=== PATIENT | female | born 1965 | race Caucasian/White ===

== ENCOUNTER → 2018-07-08 | Day surgery (SDC) | payer OTHER ==
[~2018-07-08] MED LIST: ADDERALL 30 MG30 MG PO; AMBIEN10 MG PO; ATENOLOL50 MG PO; CELEBREX100 MG PO; FENTANYL CITRATE/PF 100MCG/2 ML INJ ONE; IMITREX25 MG PO; LEVOTHYROXINE150 MCG PO; LEVOXYL175 MCG PEG; LIDOCAINE HCL 2% LOCAL INJ 5 ML SDV VIAL INJ ONE; MIDAZOLAM HCL 2 MG/2 ML VIAL ONE; NORCO 5-325 TA1 EACH PO; PLAQUENIL200 MG PO; PROPOFOL IV EMULSION 10 MG/ML 50 ML VIAL ONE; Tambocor PO
[2018-07-08 10:44] VITALS: BP 99/65
[2018-07-08 11:00] VITALS: BP 108/80
[2018-07-08 11:15] VITALS: BP 116/78
[2018-07-08 11:30] VITALS: BP 112/77
--- NOTE | 2018-07-08 16:48 | Operative Report ---
DATE OF PROCEDURE: 07/08/2018 SURGEON: Dilip Jeter MD PROCEDURE: Colonoscopy and polypectomy. INDICATION FOR COLONOSCOPY: Colorectal cancer screening. MEDICATIONS: The patient was done under MAC, please see anesthesiologist's note. PROCEDURE IN DETAIL: With the patient in left lateral decubitus position, a flexible fiberoptic Olympus colonoscope was inserted into the rectum with ease and advanced all the way to the cecum. A minute polyp was hot biopsied from the cecum and polypectomy site was hemoclipped. Ascending and transverse colon grossly appeared to be within normal limits. There was some diverticular disease noted primarily in the left colon. One polyp was hot biopsied from the sigmoid and one polyp was hot biopsied from the proximal rectum. The scope was then retroflexed into the distal rectum and small internal hemorrhoids were noted, none of which was actively bleeding. The scope was then straightened out, it was subsequently withdrawn. The patient tolerated procedure well. IMPRESSION: 1. Cecal polyp, hot biopsied, site hemoclipped. 2. Diverticulosis. 3. Sigmoid colon polyp, hot biopsied. 4. Rectal polyp, hot biopsied. 5. Internal hemorrhoids, none actively bleeding. PLAN: Follow up histology. Initiate high-fiber, low-fat diet. Initiate high-fiber supplement. The patient might benefit from a followup colonoscopy in 3 to 5 years. MD RACHAEL Zazueta/NELSYL /[id number] cc: Анна Felipe
--- OUTSIDE RECORDS SUMMARY | 2018-07-10 10:29 | XMS REPORT | Clinical Summary ---
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 Active atenolol (TENORMIN) 25 MG Take 25 mg by 0 tablet mouth daily. Active dextroamphetamine-ampheta Take 30 mg by 0 mine (ADDERALL) 30 mg mouth daily. tablet Active aspirin (ECOTRIN) 81 MG Take 81 mg by 0 enteric coated tablet mouth daily. Active HYDROcodone-acetaminophen Take 1 tablet 0 (NORCO) 10-325 mg per by mouth tablet every 6 (six) hours as needed for moderate pain. Active levothyroxine (SYNTHROID, Take 175 mcg 0 LEVOXYL) 175 mcg tablet by mouth every morning. Active Lactobacillus Take 1 tablet 0 acidoph-L.bulgar by mouth (FLORANEX) 1 million cell daily. tablet Active zolpidem (AMBIEN) 10 mg Take 10 mg by 0 tablet mouth nightly as needed for sleep. Active melatonin 10 mg capsule Take by mouth 0 nightly as needed. 07/25/2017 codeine-guaifenesin Take 5 mL by 118 mL 0 (GUAIFENESIN AC) 10-100 mouth every 4 8 mg/5 mL liquid (four) hours as needed for cough for up to 10 days. 08/14/2017 pantoprazole (PROTONIX) Take 1 tablet 30 tablet 0 40 MG EC tablet (40 mg total) 8 by mouth daily for 30 days. 07/15/2017 Discontinued budesonide (PULMICORT) Take 2 mL 120 mL 0 0.5 mg/2 mL nebulizer (0.5 mg 8 solution total) by nebulization 2 (two) times a day for 30 days. 08/14/2017 albuterol (ACCUNEB) 2.5 Take 3 mL 75 mL 12 mg /3 mL (0.083 %) (2.5 mg 8 nebulizer solution total) by nebulization every 4 (four) hours as needed for shortness of breath for up to 30 days. 08/14/2017 ipratropium (ATROVENT) Take 2.5 mL 75 mL 12 0.02 % nebulizer solution (0.5 mg 8 total) by nebulization every 4 (four) hours as needed for wheezing or shortness of breath for up to 30 days. 08/14/2017 fluticasone-vilanterol Inhale 1 30 each 0 (BREO ELLIPTA) 100-25 inhalations 8 mcg/dose blister with daily for 30 device powder for days. inhalation Active Problems Problem Noted Date Hemoptysis 07/10/2017 Encounters Care Team Description Date Type Specialty Jerry Ceron MD 07/15/2017 Anesthesia Pulmonology Event Анна Morales MD BRONCHOSCOPY, USING ELECTROMAGNETIC NAVIGATION 07/15/2017 Surgery Pulmonology Hermilo Bhatti MD Nguyen, Thuyen T., MD Hemoptysis (Primary Dx); Mycobacterium avium complex; Bronchiectasis with acute exacerbation 07/10/2017 [facility] General Internal Medicine - Encounter 07/15/2017 after 07/09/2017 Social History Date Tobacco Use Types Packs/Day Years Used Never Smoker Smokeless Tobacco: Never Used Alcohol Use Drinks/Week oz/Week Comments No Sex Assigned at Date Recorded Not on file Industry Job Start Date Occupation Not on file Not on file Not on file Travel End Travel History Travel Start No recent travel history available. Last Filed Vital Signs Time Taken Vital Sign Reading 07/15/2017 10:41 AM CDT Blood Pressure 125/66 07/15/2017 10:41 AM CDT Pulse 81 07/15/2017 10:41 AM CDT Temperature 36 C (96.8 F) 07/15/2017 10:41 AM CDT Respiratory Rate 18 07/15/2017 10:41 AM CDT Oxygen Saturation 98% - Inhaled Oxygen - Concentration 07/10/2017 1:30 PM CDT Weight 51.7 kg (114 lb 1 oz) - Height - - Body Mass Index - Plan of Treatment Health Maintenance Due Date Last Done Comments CERVICAL CANCER SCREENING 1985 BREAST CANCER SCREENING 2014 COLON CANCER SCREENING 2014 SHINGLES VACCINES (#1) 2014 INFLUENZA VACCINE 09/28/2018 Implants Device Identifier Shelf Expiration Date Model / Serial / Lot Implanted Type Area Manufactur er Breast Implants Procedures Comments Procedure Name Priority Date/Time Associated Diagnosis SURGICAL PATHOLOGY Routine 07/15/2017 REQUEST 11:10 AM CDT CYTOLOGY Routine 07/15/2017 (NON-GYNECOLOGICAL) 10:54 AM CDT REQUEST CYTOLOGY Routine 07/15/2017 (NON-GYNECOLOGICAL) 10:54 AM CDT REQUEST BODY FLUID CONSULT Routine 07/15/2017 10:32 AM CDT BAL T4T8 Routine 07/15/2017 10:32 AM CDT BAL CELL COUNT AND Routine 07/15/2017 DIFFERENTIAL 10:32 AM CDT XR CHEST 1 VW PORTABLE Routine 07/15/2017 9:40 AM CDT GRAM STAIN Routine 07/15/2017 9:36 AM CDT RESPIRATORY CULTURE Routine 07/15/2017 9:36 AM CDT FUNGUS SMEAR Routine 07/15/2017 9:36 AM CDT AFB STAIN Routine 07/15/2017 9:36 AM CDT AFB CULTURE Routine 07/15/2017 9:36 AM CDT AFB STAIN Routine 07/15/2017 9:36 AM CDT FUNGUS SMEAR Routine 07/15/2017 9:36 AM CDT FUNGUS CULTURE Routine 07/15/2017 9:36 AM CDT RESPIRATORY CULTURE Routine 07/15/2017 9:36 AM CDT RESPIRATORY PATHOGEN Routine 07/15/2017 PANEL 9:36 AM CDT LEGIONELLA CULTURE Routine 07/15/2017 9:36 AM CDT NOCARDIA CULTURE Routine 07/15/2017 9:36 AM CDT FUNGUS CULTURE Routine 07/15/2017 9:36 AM CDT AFB CULTURE Routine 07/15/2017 9:36 AM CDT BRONCHOSCOPY, USING 07/15/2017 Lung nodule ELECTROMAGNETIC 8:00 AM CDT NAVIGATION, WITH ENDOBRONCHIAL ULTRASOUND HC COMPLETE BLD COUNT Routine 07/15/2017 W/AUTO DIFF 5:00 AM CDT PROTHROMBIN TIME WITH INR Routine 07/15/2017 5:00 AM CDT ZZESTIMATED GFR Routine 07/15/2017 4:00 AM CDT BASIC METABOLIC PANEL Routine 07/15/2017 4:00 AM CDT ECHOCARDIOGRAM 2D Routine 07/14/2017 COMPLETE W MMODE SPECTRAL 3:00 PM CDT COLOR DOPPLER (77535) TB IN-TUBE QUANTIFERON Routine 07/14/2017 10:22 AM CDT ZZESTIMATED GFR Routine 07/14/2017 7:10 AM CDT BASIC METABOLIC PANEL Routine 07/14/2017 7:10 AM CDT HC COMPLETE BLD COUNT Routine 07/14/2017 W/AUTO DIFF 5:00 AM CDT ECG 12-LEAD Routine 07/13/2017 2:36 PM CDT HC COMPLETE BLD COUNT Routine 07/12/2017 W/AUTO DIFF 5:00 AM CDT ZZESTIMATED GFR Routine 07/12/2017 4:00 AM CDT MAGNESIUM LEVEL Routine 07/12/2017 4:00 AM CDT BASIC METABOLIC PANEL Routine 07/12/2017 4:[address] CHEST W CONTRAST Routine 07/11/2017 5:17 PM CDT B NATRIURETIC PEPTIDE Routine 07/11/2017 5:30 AM CDT PROTHROMBIN TIME WITH INR Routine 07/11/2017 5:30 AM CDT HC COMPLETE BLD COUNT Routine 07/11/2017 W/AUTO DIFF 5:30 AM CDT ZZESTIMATED GFR Routine 07/11/2017 4:00 AM CDT THYROID STIMULATING Routine 07/11/2017 HORMONE 4:00 AM CDT PHOSPHORUS LEVEL Routine 07/11/2017 4:00 AM CDT MAGNESIUM LEVEL Routine 07/11/2017 4:00 AM CDT LIPID PANEL Routine 07/11/2017 4:00 AM CDT COMPREHENSIVE METABOLIC Routine 07/11/2017 PANEL 4:00 AM CDT URINALYSIS SCREEN AND Routine 07/10/2017 MICROSCOPY, WITH REFLEX 11:12 PM CDT TO CULTURE URINE CULTURE Routine 07/10/2017 11:00 PM CDT TROPONIN Timed 07/10/2017 2:40 PM CDT BLOOD CULTURE, AEROBIC & Routine 07/10/2017 ANAEROBIC 2:00 PM CDT BLOOD CULTURE, AEROBIC & Routine 07/10/2017 ANAEROBIC 2:00 PM CDT RESPIRATORY PATHOGEN Routine 07/10/2017 PANEL 2:00 PM CDT ZZESTIMATED GFR STAT 07/10/2017 6:55 AM CDT TYPE AND SCREEN Routine 07/10/2017 6:55 AM CDT PARTIAL THROMBOPLASTIN STAT 07/10/2017 TIME (PTT) 6:55 AM CDT PROTHROMBIN TIME WITH INR STAT 07/10/2017 6:55 AM CDT HC COMPLETE BLD COUNT STAT 07/10/2017 W/AUTO DIFF 6:55 AM CDT COMPREHENSIVE METABOLIC STAT 07/10/2017 PANEL 6:55 AM CDT XR CHEST 2 VW STAT 07/10/2017 6:41 AM CDT after 07/09/2017 Results * Surgical pathology request (07/15/2017 11:10 AM CDT) [facility] PATHOLOGY AND GENOMIC MEDICINE Surgical pathology report See link below for PDF Lab [facility] Report PATHOLOGY AND GENOMIC MEDICINE Result status This is Final Report to [facility] [id number] PATHOLOGY AND GENOMIC MEDICINE Performing Organization Address City/[facility] Phone Number [facility] [address] [place] [address] PATHOLOGY AND GENOMIC MEDICINE * Cytology (non-gynecological) request (07/15/2017 10:54 AM CDT) Only the most recent of 2 results within the time period is included. [facility] PATHOLOGY AND GENOMIC MEDICINE Cytology See link below for PDF Lab [facility] OF (non-gynecological) Report PATHOLOGY AND report GENOMIC MEDICINE Result status This is Supplemental Report to [facility] OF [id number] PATHOLOGY AND GENOMIC MEDICINE Performing Organization Address City/[facility]/Zipcode Phone Number [facility] [address] [place] [address] PATHOLOGY AND GENOMIC MEDICINE * Body fluid consult (07/15/2017 10:32 AM CDT) Body fluid consult Done [facility] Comment: PATHOLOGY AND Negative for GENOMIC MEDICINE malignancy.Please see corresponding cytology NMP and NMP for morphological diagnosis.Reviewed by Aubrie Mcgrath M.D. Specimen Fluid Performing Organization Address [facility]/Zipcode Phone Number [facility] [address] [address] PATHOLOGY AND GENOMIC MEDICINE * BAL T4T8 (07/15/2017 10:32 AM CDT) CD3 BAL FC 88.9 % [facility] PATHOLOGY AND GENOMIC MEDICINE CD4 BAL FC 65.3 % [facility] PATHOLOGY AND GENOMIC MEDICINE CD8 BAL FC 18.6 % [facility] PATHOLOGY AND GENOMIC MEDICINE CD4 BAL/CD8 BAL ratio 3.51 [facility] OF PATHOLOGY AND GENOMIC MEDICINE BAL T4T8 See link below for PDF Lab [facility] OF ReportComment: Case Number: PATHOLOGY AND [id number] GENOMIC MEDICINE Specimen RUL BAL Performing Organization Address [facility] Cent[facility]ode Phone Number [facility] [address] [address] PATHOLOGY AND GENOMIC MEDICINE * BAL cell count and differential (07/15/2017 10:32 AM CDT) BAL specimen source RUL BAL [facility] OF PATHOLOGY AND GENOMIC MEDICINE BAL cell count 0.080 m/mL [facility] Comment: PATHOLOGY AND Normal ranges: Nonsmokers: GENOMIC MEDICINE 0.007 - 0.363 Smokers: 0 - 1.31 Ciliated Cells Seen. 07/15/201712:23 Many [facility] REVISED REPORT, Previously reported as: Ciliated Cells Seen. 07/15/2017 12:23(Reported 07/15/2017 12:23) BAL PAMS 15 % [facility] Comment: PATHOLOGY AND Normal ranges: Nonsmokers: 65 GENOMIC MEDICINE - 100 Smokers: 81 - 100 BAL PMNS 79 % [facility] Comment: PATHOLOGY AND Normal ranges: Nonsmokers: 0 - GENOMIC MEDICINE 3 Smokers: 0 - 2 BAL lymphs 6 % [facility] Comment: PATHOLOGY AND Normal ranges: Nonsmokers: 0 - GENOMIC MEDICINE 10 Smokers: 0 - 5 Specimen Fluid Performing Organization Address [facility] Cent[facility]ode Phone Number [address] [address] PATHOLOGY AND GENOMIC MEDICINE * XR Chest 1 Vw Portable (07/15/2017 9:40 AM CDT) Narrative Performed At EXAMINATION:XR CHEST 1 VW PORTABLE RADIANT CLINICAL HISTORY:Post lung biopsy COMPARISON:July 10, 2017 IMPRESSION: There is no pneumothorax. Irregular opacity reidentified peripherally in the right lung as well as in the lingular area. There is no pleural effusion. Heart is normal in size. [facility]-[id number] Procedure Note Hm Interface, Radiology Results Incoming - 07/15/2017 2:49 PM CDT EXAMINATION: XR CHEST 1 VW PORTABLE CLINICAL HISTORY: Post lung biopsy COMPARISON: July 10, 2017 IMPRESSION: There is no pneumothorax. Irregular opacity reidentified peripherally in the right lung as well as in the lingular area. There is no pleural effusion. Heart is normal in size. [facility]-[id number] Performing Organization Address [facility] [place] [address] * Respiratory culture (07/15/2017 9:36 AM CDT) Only the most recent of 2 results within the time period is included. Respiratory culture No growth after 2 days. [facility] OF isolate Comment: PATHOLOGY AND Specimen Information GENOMIC MEDICINE Specimen Source: Bronchial alveolar lavage Specimen Site: RUL (right upper lobe) Specimen Bronchial alveolar lavage - RUL (right upper lobe) Performing Organization Address [facility] Phone Number [facility] [address] [place] [address] PATHOLOGY AND GENOMIC MEDICINE * Fungus smear (07/15/2017 9:36 AM CDT) Only the most recent of 2 results within the time period is included. Fungus smear No fungi observed. [facility] Comment: PATHOLOGY AND Specimen Information GENOMIC MEDICINE Specimen Source: Bronchial alveolar lavage Specimen Site: RUL (right upper lobe) Specimen Bronchial alveolar lavage - RUL (right upper lobe) Performing Organization Address [facility] Phone Number [facility] [address] [place] [address] PATHOLOGY AND GENOMIC MEDICINE * Respiratory pathogen panel (07/15/2017 9:36 AM CDT) Only the most recent of 2 results within the time period is included. Respiratory pathogen Negative for all pathogens [facility] panel tested: PATHOLOGY AND Negative for Adenovirus GENOMIC MEDICINE Negative for Coronavirus HKU1 Negative for Coronavirus NL63 Negative for Coronavirus 229E Negative for Coronavirus OC43 Negative for Human Metapneumovirus Negative for Rhinovirus/Enterovirus Negative for Influenza A Negative for Influenza A/H1 Negative for Influenza A/H3 Negative for Influenza A/H1-2009 Negative for Influenza B Negative for Parainfluenza Virus 1 Negative for Parainfluenza Virus 2 Negative for Parainfluenza Virus 3 Negative for Parainfluenza Virus 4 Negative for Respiratory Syncytial Virus Negative for Bordetella pertussis Negative for Chlamydophila pneumoniae Negative for Mycoplasma pneumoniae This real-time PCR assay detects the presence of nucleic acids (RNA or DNA) for the respiratory pathogens listed. A result of "Not-detected" does not exclude the possibility of the presence of one or more pathogens at concentrations less than the detectable limits of the assay. Comment: Specimen Information Specimen Source: Bronchial alveolar lavage Specimen Site: RUL (right upper lobe) Specimen Bronchial alveolar lavage - RUL (right upper lobe) Performing Organization Address City/[facility]ode Phone Number [facility] [address] [place] [address] PATHOLOGY AND GENOMIC MEDICINE * AFB culture (07/15/2017 9:36 AM CDT) Only the most recent of 2 results within the time period is included. AFB culture isolate No growth after 6 weeks of [facility] incubation. PATHOLOGY AND Comment: GENOMIC MEDICINE Specimen Information Specimen Source: Bronchial Brushing Specimen Site: RUL (right upper lobe) Specimen Bronchial brushing - RUL (right upper lobe) Performing Organization Address [facility] Phone Number [facility] [address] [place] [address] PATHOLOGY AND GENOMIC MEDICINE * Nocardia culture (07/15/2017 9:36 AM CDT) Nocardia culture isolate No Nocardia isolated after 7 [facility] days. PATHOLOGY AND Comment: GENOMIC MEDICINE Specimen Information Specimen Source: Bronchial alveolar lavage Specimen Site: RUL (right upper lobe) Specimen Bronchial alveolar lavage - RUL (right upper lobe) Performing Organization Address City/[facility]ode Phone Number [facility] [address] [place] [phone] PATHOLOGY AND GENOMIC MEDICINE * Legionella culture (07/15/2017 9:36 AM CDT) Legionella culture No Legionella isolated. [facility] OF isolate Comment: PATHOLOGY AND Specimen Information GENOMIC MEDICINE Specimen Source: Bronchial alveolar lavage Specimen Site: RUL (right upper lobe) Specimen Bronchial alveolar lavage - RUL (right upper lobe) Performing Organization Address City/[facility] Phone Number [facility] [address] [address] PATHOLOGY AND GENOMIC MEDICINE * Gram stain (07/15/2017 9:36 AM CDT) Gram stain isolate Occasional WBC's [facility] No organisms seen PATHOLOGY AND Comment: GENOMIC MEDICINE Specimen Information Specimen Source: Bronchial alveolar lavage Specimen Site: RUL (right upper lobe) Specimen Bronchial alveolar lavage - RUL (right upper lobe) Performing Organization Address City/[facility] Phone Number [facility] [address] [place] [address] PATHOLOGY AND GENOMIC MEDICINE * AFB stain (07/15/2017 9:36 AM CDT) Only the most recent of 2 results within the time period is included. AFB stain No acid fast bacilli (AFB) [facility] OF seen. PATHOLOGY AND Comment: GENOMIC MEDICINE Specimen Information Specimen Source: Bronchial alveolar lavage Specimen Site: RUL (right upper lobe) Specimen Bronchial alveolar lavage - RUL (right upper lobe) Performing Organization Address City/[facility] Phone Number [facility] [address] [place] [address] PATHOLOGY AND GENOMIC MEDICINE * Fungus culture (07/15/2017 9:36 AM CDT) Only the most recent of 2 results within the time period is included. Fungus culture isolate No growth after 4 weeks of [facility] OF incubation. PATHOLOGY AND Comment: GENOMIC MEDICINE Specimen Information Specimen Source: Bronchial Brushing Specimen Site: RUL (right upper lobe) Specimen Bronchial brushing - RUL (right upper lobe) Performing Organization Address [facility] Phone Number [facility] [address] [place] [address] PATHOLOGY AND GENOMIC MEDICINE * Prothrombin time with INR (07/15/2017 5:00 AM CDT) Only the most recent of 3 results within the time period is included. Prothrombin time 13.8 12.0 - 15.0 sec [facility] OF PATHOLOGY AND GENOMIC MEDICINE INR 1.0 [facility] Comment: PATHOLOGY AND The International Normalized GENOMIC MEDICINE Ratio (INR) is a therapeutic monitoring tool for patients who are stable on oral anticoagulant therapy. An INR of 2.0-3.0 is suggested for deep vein thrombosis/pulmonary embolism. Specimen Blood Performing Organization Address City/[facility]ode Phone Number [facility] [address] [place] [address] PATHOLOGY AND GENOMIC MEDICINE * CBC with platelet and differential (07/15/2017 5:00 AM CDT) Only the most recent of 5 results within the time period is included. WBC 4.67 4.50 - 11.00 k/uL [facility] OF PATHOLOGY AND GENOMIC MEDICINE RBC 4.02 (L) 4.20 - 5.50 m/uL [facility] OF PATHOLOGY AND GENOMIC MEDICINE HGB 11.6 (L) 12.0 - 16.0 g/dL [facility] OF PATHOLOGY AND GENOMIC MEDICINE HCT 36.3 (L) 37.0 - 47.0 % [facility] OF PATHOLOGY AND GENOMIC MEDICINE MCV 90.3 82.0 - 100.0 fL [facility] OF PATHOLOGY AND GENOMIC MEDICINE MCH 28.9 27.0 - 34.0 pg [facility] OF PATHOLOGY AND GENOMIC MEDICINE MCHC 32.0 31.0 - 37.0 g/dL [facility] OF PATHOLOGY AND GENOMIC MEDICINE RDW - SD 44.0 37.0 - 55.0 fL [facility] OF PATHOLOGY AND GENOMIC MEDICINE MPV 10.5 8.8 - 13.2 fL [facility] OF PATHOLOGY AND GENOMIC MEDICINE Platelet count 256 150 - 400 k/uL [facility] OF PATHOLOGY AND GENOMIC MEDICINE Nucleated RBC 0.00 /100 WBC [facility] OF PATHOLOGY AND GENOMIC MEDICINE Neutrophils 44.8 39.0 - 69.0 % [facility] OF PATHOLOGY AND GENOMIC MEDICINE Lymphocytes 37.0 25.0 - 45.0 % [facility] OF PATHOLOGY AND GENOMIC MEDICINE Monocytes 15.4 (H) 0.0 - 10.0 % [facility] OF PATHOLOGY AND GENOMIC MEDICINE Eosinophils 1.7 0.0 - 5.0 % [facility] OF PATHOLOGY AND GENOMIC MEDICINE Basophils 0.9 0.0 - 1.0 % [facility] OF PATHOLOGY AND GENOMIC MEDICINE Immature granulocytes 0.2Comment: "Immature 0.0 - 1.0 % [facility] granulocytes" (promyelocytes, PATHOLOGY AND myelocytes, metamyelocytes) [facility] MEDICINE Specimen Blood Performing Organization Address City/State/Zipcode Phone Number [facility] OF [address] [place] [address] PATHOLOGY AND GENOMIC MEDICINE * Estimated GFR (07/15/2017 4:00 AM CDT) Only the most recent of 5 results within the time period is included. GFR Non Af Amer 75 mL/min/1.73 m2 [facility] OF PATHOLOGY AND GENOMIC MEDICINE GFR Af Amer >90 mL/min/1.73 m2 [facility] Comment: PATHOLOGY AND Chronic kidney disease: <60 GENOMIC MEDICINE mL/min/1.73m2 Kidney failure: <15 mL/min/1.73m2 The estimated GFR is calculated from the IDMS-traceable Modification of Diet in Renal Disease Equation. The accuracy of the calculation is poor when the creatinine is normal. Calculated values >90 mL/min/1.73m2 are not reported. This equation has not been validated in children (<18 years), women, the elderly (>70 years), or ethnic groups other than Caucasians and Americans. Specimen Plasma specimen Performing Organization Address City/[facility] [place] [address] PATHOLOGY [facility] * Basic metabolic panel (07/15/2017 4:00 AM CDT) Only the most recent of 3 results within the time period is included. Sodium 138 135 - 148 mEq/L [facility] OF PATHOLOGY AND GENOMIC MEDICINE Potassium 4.3 3.5 - 5.0 mEq/L [facility] OF PATHOLOGY AND GENOMIC MEDICINE Chloride 101 98 - 112 mEq/L [facility] OF PATHOLOGY AND GENOMIC MEDICINE CO2 23 (L) 24 - 31 mEq/L [facility] OF PATHOLOGY AND GENOMIC MEDICINE Anion gap 14@ANIO 7 - 15 mEq/L [facility] OF PATHOLOGY AND GENOMIC MEDICINE BUN 12 6 - 20 mg/dL [facility] OF PATHOLOGY AND GENOMIC MEDICINE Creatinine 0.8 0.5 - 0.9 mg/dL [facility] OF PATHOLOGY AND GENOMIC MEDICINE Glucose 78 65 - 99 mg/dL [facility] OF PATHOLOGY AND GENOMIC MEDICINE Calcium 9.3 8.3 - 10.2 mg/dL [facility] OF PATHOLOGY AND GENOMIC MEDICINE Specimen Plasma specimen Performing Organization Address City/[facility] Phone Number [facility] [place] [place] [address] PATHOLOGY [facility] * Echocardiogram complete w contrast and 3D if needed (07/14/2017 3:00 PM CDT) [facility]arrative [facility] [address] [place] [address] Pat.Name:KAREN COBOS.ID:[id number] .Date: 07/14/2017 Refer.MD:GERTRUDIS TOSCANO MD Exam Time: 1:55:00 PMStudy Type:Routine Echo Height:65inWeight:114lb BSA: 1.56 m2 DOBAge:1965,51Y Sex: FEMALEBP:136/77 HR:84 bpmSonogrphr: SULY Marie Pat. Stat.:Inpatient Room:[facility] Study Status:Final Echo Event ID:[id number] Order ID:[id number] Reason for Study:Perioperative Eval - Routine prioperative eval of ventricular function with no symptoms or signs of cardiovascular disease; planned for general anesthesia tomorrow, 07/14 Procedures:2D Echo, Colorflow Doppler, 3D Echo Race:C SUMMARY: Overall wall motion is normal. Estimated EF is 65-69% RV systolic function is normal. Normal diastolic function. FINDINGS: LV: LV size is normal. LV EF is normal. Overall wall motion is normal.Estimated EF is 65-69% RV: RV size is normal. RV systolic function is normal. LA: LA size is normal. RA: RA size is normal. AO: Aortic root diameter is normal. KATHLEEN: No pericardial effusion. AV: No structural AV abnormalities noted. MV: No structural MV abnormalities noted. PV: No structural PV abnormalities noted. TV: No structural TV abnormalities noted. Nguyễn: Normal diastolic function. Other:Insufficient TR jet to estimate PA systolic pressure. MEASUREMENTS: 2D Parasternal Long [place] LVOT 1.6 cmLA Ds2.9 cm LVIDd4.2 cmIndex2.7 cm/m Ao An1.8 cm LVIDs2.1 cmAo Rtd 2.3 cm Index1.4 cm/m LV%fs 49.8 % LV Mass 87.6 g(87-129) IVSd 0.7 cmLVM Index 56.1 g/m2 LVPWd0.8 cmRWT0.4 LA Sng Plane LA Area 12.8 cm2(8.8-23.4) LA Vol36.5 ml Index23.4 ml/m LA LngAx 3.7 cm RA Sng Plane RA Area9.6 cm2(8.3-19.5) RA Vol23.7 ml Index15.2 ml/m RA LngAx 3.3 cm Signed 07/14/2017 03:48 PM Joesph Smith M.D. Procedure Note Interface, Radiology Results In - 07/14/2017 3:48 PM CDT Echocardiography Report [id number] [place] [address] Pat.Name: KAREN COBOS Pat.ID: [id number] .Date: 07/14/2017 Refer.MD: GERTRUDIS TOSCANO MD Exam Time: 1:55:00 PM Study Type:Routine Echo Height: 65in Weight: 114lb BSA: 1.56 m2 Age: 10 1965,51Y Sex: FEMALE BP: 136/77 HR: 84 bpm Sonogrphr: SULY Marie Pat. Stat.:Inpatient Room: [facility] Study Status:Final Echo Event ID:[id number] Order ID: [id number] Reason for Study:Perioperative Eval - Routine prioperative eval of ventricular function with no symptoms or signs of cardiovascular disease; planned for general anesthesia tomorrow, 07/14 Procedures:2D Echo, Colorflow Doppler, 3D Echo Race: C SUMMARY: Overall wall motion is normal. Estimated EF is 65-69% RV systolic function is normal. Normal diastolic function. FINDINGS: LV: LV size is normal. LV EF is normal. Overall wall motion is normal. Estimated EF is 65-69% RV: RV size is normal. RV systolic function is normal. LA: LA size is normal. RA: RA size is normal. AO: Aortic root diameter is normal. KATHLEEN: No pericardial effusion. AV: No structural AV abnormalities noted. MV: No structural MV abnormalities noted. PV: No structural PV abnormalities noted. TV: No structural TV abnormalities noted. Nguyễn: Normal diastolic function. Other: Insufficient TR jet to estimate PA systolic pressure. MEASUREMENTS: 2D Parasternal Long [place] LVOT 1.6 cm LA Ds 2.9 cm LVIDd 4.2 cm Index 2.7 cm/m Ao An 1.8 cm LVIDs 2.1 cm Ao Rtd 2.3 cm Index 1.4 cm/m LV%fs 49.8 % LV Mass 87.6 g (87-129) IVSd 0.7 cm LVM Index 56.1 g/m2 LVPWd 0.8 cm RWT 0.4 LA Sng Plane LA Area 12.8 cm2 (8.8-23.4) LA Vol 36.5 ml Index 23.4 ml/m LA LngAx 3.7 cm RA Sng Plane RA Area 9.6 cm2 (8.3-19.5) RA Vol 23.7 ml Index 15.2 ml/m RA LngAx 3.3 cm Signed 07/14/2017 03:48 PM Joesph Smith M.D. Performing Organization Address City/State/Zipcode Phone Number [facility] [address] [place] [address] * TB IN-TUBE Quantiferon (07/14/2017 10:22 AM CDT) TB IN-TUBE Quantiferon SEE NOTE [facility] OF Comment: PATHOLOGY AND Quantiferon TB Gold In-Tube GENOMIC MEDICINE Test Results: QUANTITATIVE NIL: 0.03 QUANTITATIVE ANTIGEN: 0.04 QUANTITATIVE MITOGEN: 4.13 QUANTITATIVE ANTIGEN-NIL: 0.01 QUANTITATIVE MITOGEN-NIL: 4.1 QUALITATIVE INTERPRETATION:NEGATIVE (Reference: negative) INTERFERON GAMMA CONCENTRATIONS EXPRESSED IN IU/ML. RESULT INTERPRETATION RESULTS ARE NEGATIVE UNDER THE FOLLOWING CONDITIONS: (Antigen - Nil) < 0.35 and (Mitogen - Nil) >=0.5 RESULTS ARE POSITIVE UNDER THE FOLLOWING CONDITIONS: (ANTIGEN-NIL) > 0.35 AND (ANTIGEN-NIL) >=25% OF NIL RESULTS ARE INDETERMINATE IF ANY OF THE FOLLOWING 3 CONDITIONS ARE MET: 1. (ANTIGEN-NIL) < 0.35 AND (MITOGEN-NIL) < 0.5 2. (ANTIGEN-NIL) >=0.35 AND (ANTIGEN-NIL) < 25% OF NIL AND (MITOGEN-NIL) < 0.5 3. NIL > 8.0 LIMITATIONS: Quantiferon TB In-Tube is an indirect test for M. tuberculosis infection (including disease).Diagnosing or excluding tuberculosis disease, and assessing the probability of LTBI, require a combination of epidemiological, historical, medical and diagnostic findings that should be taken into account when interpreting Quantiferon TB Gold results.See general guidance on the diagnosis and treatment of TB disease and LTBI: http://www.cdc.gov.nchstp/tb/ M. tuberculosis infection cannot be excluded especially when: 1. any illness is consistent with TB disease. 2. likelihood of progression to disease (e.g. due to immunosuppression) is increased. NOTE:The cut-point for the Quantiferon TB In-tube test is 0.35 IU/mL above the NIL control. Warning: The performance of the Quantiferon TB test has not been evaluated with specimens from the following group of individuals: 1. Individuals who have impaired or altered immune function (HIV infection or immunosuppressive treatment). 2. Individuals younger than age 17 years. 3. women. Test performed by: [facility] Molecular Tuberculosis Lab [facility] [place], [place] lab: [phone] fax: [phone] Specimen Blood Performing Organization Address City/[facility]/Zipcode Phone Number [facility] OF [address] [place] [address] PATHOLOGY AND GENOMIC MEDICINE * ECG 12 lead (07/13/2017 2:36 PM CDT) Ventricular rate 78 H MUSE Atrial rate 78 [facility] HI interval 170 [facility] QRSD interval 84 [facility] QT interval 382 [facility] QTC interval 435 [facility] M[facility] P axis 1 66 [facility] QRS axis 1 28 [facility] T wave axis 69 [facility] EKG impression Normal sinus rhythm-Normal [facility] ECG-No previous ECGs available- Performing Organization Address City/[facility] Phone Number [facility] [address] [place] [address] * Magnesium level (07/12/2017 4:00 AM CDT) Only the most recent of 2 results within the time period is included. Magnesium 1.9 1.6 - 2.6 mg/dL [facility] OF PATHOLOGY AND GENOMIC MEDICINE Specimen Plasma specimen Performing Organization Address City/[facility] Phone Number [facility] OF [address] [place] [address] PATHOLOGY AND GENOMIC MEDICINE * CT Chest W Contrast (07/11/2017 5:17 PM CDT) Narrative Performed At EXAMINATION: RADIANT CT CHEST W CONTRAST CLINICAL HISTORY: BRONCHIECTASIS WACUTE EXACERBATION TECHNIQUE: Multiple axial images of the chest were obtained following intravenous administration of iodinated contrast. Sagittal and coronal computerized reformatted images were also obtained. CT scans are performed using radiation dose reduction techniques. Technical factors are evaluated and adjusted to ensure appropriate moderation of exposure. Automated dose management technology is applied to adjust radiation exposure while achieving a diagnostic quality image COMPARISON: FINDINGS: Scans to the right lung aguilar demonstrate scattered areas of bronchiectasis with small nodular densities some of which have central lucency suggesting early cavitation.Most prominent areas are in the posterior right upper lobe and in the upper right middle lobe near the minor fissure where there is a spiculated mass density 1.7 cm in diameter.Multiple smaller nodular densities are seen scattered throughout the right middle lobe and right upper lobe. In the posterior right lower lobe there is a 13 mm nodular density with large central clear area compatible with early cavitation. In the lingula there is an area of density with the transversing bronchiectatic segments and some nodularity.In the left lower lobe there is a more focal area of density measuring approximately 8 mm in diameter.Findings are compatible with multifocal bronchial infection or inflammation and atypical organisms should be considered.Neoplasm cannot be excluded for any of these lesions. There is no significant mediastinal mass are adenopathy.Some minimally prominent lymph nodes are noted in the right hilum but not the left.Thoracic aorta and pulmonary artery are of normal caliber. There are bilateral breast prosthesis. IMPRESSION: Extensive bilateral changes of bronchiectasis with nodularity and some cavitation. [facility]-[id number] Procedure Note [facility], Radiology Results Incoming - 07/11/2017 5:32 PM CDT EXAMINATION: CT CHEST W CONTRAST CLINICAL HISTORY: BRONCHIECTASIS W ACUTE EXACERBATION TECHNIQUE: Multiple axial images of the chest were obtained following intravenous administration of iodinated contrast. Sagittal and coronal computerized reformatted images were also obtained. CT scans are performed using radiation dose reduction techniques. Technical factors are evaluated and adjusted to ensure appropriate moderation of exposure. Automated dose management technology is applied to adjust radiation exposure while achieving a diagnostic quality image COMPARISON: FINDINGS: Scans to the right lung aguilar demonstrate scattered areas of bronchiectasis with small nodular densities some of which have central lucency suggesting early cavitation. Most prominent areas are in the posterior right upper lobe and in the upper right middle lobe near the minor fissure where there is a spiculated mass density 1.7 cm in diameter. Multiple smaller nodular densities are seen scattered throughout the right middle lobe and right upper lobe. In the posterior right lower lobe there is a 13 mm nodular density with large central clear area compatible with early cavitation. In the lingula there is an area of density with the transversing bronchiectatic segments and some nodularity. In the left lower lobe there is a more focal area of density measuring approximately 8 mm in diameter. Findings are compatible with multifocal bronchial infection or inflammation and atypical organisms should be considered. Neoplasm cannot be excluded for any of these lesions. There is no significant mediastinal mass are adenopathy. Some minimally prominent lymph nodes are noted in the right hilum but not the left. Thoracic aorta and pulmonary artery are of normal caliber. There are bilateral breast prosthesis. IMPRESSION: Extensive bilateral changes of bronchiectasis with nodularity and some cavitation. [facility]-[id number] Performing Organization Address City/[facility]/[place] [address] * B natriuretic peptide (07/11/2017 5:30 AM CDT) BNP 23 0 - 100 pg/mL [facility] OF PATHOLOGY AND GENOMIC MEDICINE Specimen Blood Performing Organization Address [facility] Cent[facility]ode Phone Number [facility] [place] [place] [address] PATHOLOGY AND [facility] * Thyroid stimulating hormone (07/11/2017 4:00 AM CDT) TSH 0.13 (L) 0.27 - 4.20 uIU/mL [facility] OF PATHOLOGY AND GENOMIC MEDICINE Specimen Plasma specimen Performing Organization Address [facility] [place] [address] PATHOLOGY AND [facility] * Phosphorus level (07/11/2017 4:00 AM CDT) Phosphorus 3.5 2.4 - 4.5 mg/dL [facility] OF PATHOLOGY AND GENOMIC MEDICINE Specimen Plasma specimen Performing Organization Address [facility] [place] [address] PATHOLOGY AND GENOMIC MEDICINE * Lipid panel (07/11/2017 4:00 AM CDT) Cholesterol 161 <200 mg/dL [facility] OF PATHOLOGY AND GENOMIC MEDICINE Triglycerides 77 <150 mg/dL [facility] OF PATHOLOGY AND GENOMIC MEDICINE HDL cholesterol 60 >40 mg/dL [facility] OF PATHOLOGY AND GENOMIC MEDICINE LDL cholesterol 98Comment: Result obtained by <100 mg/dL [facility] OF direct LDL measurement PATHOLOGY AND GENOMIC MEDICINE Lipid panel SeeBelow [facility] OF interpretation Comment: PATHOLOGY AND Total Cholesterol GENOMIC MEDICINE (mg/dL) <200 Desirable 200-239Borderline -high >=240High Triglycerides (mg/dL) <150 Normal 150-199Borderline -high 200-499High >=500Very high HDL Cholesterol (mg/dL) <40Low (male) <40Low (female) LDL Cholesterol (mg/dL) <100 Optimal 100-129Near or above optimal 130-159Borderline -high 160-189High >=190Very high Risk Catergories that modify LDL goals. Risk Catergories LDL goal (mg/dL) CHD and CHD risk equivalent<100 (10-year risk >20%) Multiple (2+) risk factors <130 (10-year risk=<20%) 0-1 risk factors <160 (<10-year risk) Defining levels of lipids in metabolic syndrome Triglycerides >=150 mg/dL HDL Cholesterol Men <40 mg/dL Women <40 mg/dL Non-HDL cholesterol is a second target for therapy in persons with high triglycerides (>=200 mg/dL) Specimen Plasma specimen Performing Organization Address City/State/Zipcode Phone Number [facility] OF [address] [place] [address] PATHOLOGY AND GENOMIC MEDICINE * Comprehensive metabolic panel (07/11/2017 4:00 AM CDT) Only the most recent of 2 results within the time period is included. Sodium 139 135 - 148 mEq/L [facility] OF PATHOLOGY AND GENOMIC MEDICINE Potassium 4.2 3.5 - 5.0 mEq/L [facility] OF PATHOLOGY AND GENOMIC MEDICINE Chloride 102 98 - 112 mEq/L [facility] OF PATHOLOGY AND GENOMIC MEDICINE CO2 24 24 - 31 mEq/L [facility] OF PATHOLOGY AND GENOMIC MEDICINE Anion gap 13@ANIO 7 - 15 mEq/L [facility]MENT OF PATHOLOGY AND GENOMIC MEDICINE BUN 11 6 - 20 mg/dL [facility] OF PATHOLOGY AND GENOMIC MEDICINE Creatinine 0.8 0.5 - 0.9 mg/dL [facility] OF PATHOLOGY AND GENOMIC MEDICINE Glucose 93 65 - 99 mg/dL [facility] OF PATHOLOGY AND GENOMIC MEDICINE Calcium 9.4 8.3 - 10.2 mg/dL [facility] OF PATHOLOGY AND GENOMIC MEDICINE Protein 8.1 6.3 - 8.3 g/dL [facility] OF Comment: PATHOLOGY AND [place] GENOMIC MEDICINE 4.6-7.0 g/dL 1 week 4.4-7.6 g/dL 7 months-1year 5.1-7.3 g/dL 1-2 years5.6-7 .5 g/dL >3 years6.0-8 .0 g/dL 18-150 6.3-8.3 g/dL Albumin 3.2 (L) 3.5 - 5.0 g/dL [facility] OF PATHOLOGY AND GENOMIC MEDICINE A/G ratio 0.7 0.7 - 3.8 [facility] OF PATHOLOGY AND GENOMIC MEDICINE Alkaline phosphatase 69 35 - 104 U/L [facility]MENT OF PATHOLOGY AND GENOMIC MEDICINE AST 23 10 - 35 U/L [facility] OF PATHOLOGY AND GENOMIC MEDICINE ALT 10 5 - 50 U/L [facility] OF PATHOLOGY AND GENOMIC MEDICINE Total bilirubin 0.3 0.0 - 1.2 mg/dL [facility] OF PATHOLOGY AND GENOMIC MEDICINE Specimen Plasma specimen Performing Organization Address City/[facility] [place] [address] PATHOLOGY [facility] * Urinalysis screen and microscopy, with reflex to culture (07/10/2017 11:12 PM CDT) Specimen site Midstream [facility]MENT OF PATHOLOGY AND GENOMIC MEDICINE Color, UA Straw [facility]MENT OF PATHOLOGY AND GENOMIC MEDICINE Appearance, UA Clear [facility]MENT OF PATHOLOGY AND GENOMIC MEDICINE Specific gravity, UA 1.012 1.001 - 1.035 [facility]MENT OF PATHOLOGY AND GENOMIC MEDICINE pH, UA 7.0 5.0 - 8.5 [facility]MENT OF PATHOLOGY AND GENOMIC MEDICINE Protein, UA Negative Negative [facility] OF PATHOLOGY AND GENOMIC MEDICINE Glucose, UA Negative Negative [facility] OF PATHOLOGY AND GENOMIC MEDICINE Ketones, UA Negative Negative [facility] OF PATHOLOGY AND GENOMIC MEDICINE Bilirubin, UA Negative Negative [facility] OF PATHOLOGY AND GENOMIC MEDICINE Blood, UA Negative Negative [facility] OF PATHOLOGY AND GENOMIC MEDICINE Nitrite, UA Negative Negative [facility] OF PATHOLOGY AND GENOMIC MEDICINE Urobilinogen, UA <2.0 <2.0 [facility] OF PATHOLOGY AND GENOMIC MEDICINE Leukocyte esterase, UA Negative Negative [facility] OF PATHOLOGY AND GENOMIC MEDICINE Epithelial cells, UA 1 /HPF [facility] OF PATHOLOGY AND GENOMIC MEDICINE WBC, UA None seen 0 - 4 /HPF [facility]MENT OF PATHOLOGY AND GENOMIC MEDICINE RBC, UA None seen 0 - 5 /HPF [facility] OF PATHOLOGY AND GENOMIC MEDICINE Bacteria, UA None seen None seen [facility]MENT OF PATHOLOGY AND GENOMIC MEDICINE Yeast, UA None seen [facility] DE[facility]MENT OF PATHOLOGY AND GENOMIC MEDICINE Yeast with pseudohyphae, None seen [facility] OF PATHOLOGY AND GENOMIC MEDICINE Specimen Urine Performing Organization Address City/[facility] Cent[facility]ode Phone Number [address] [address] PATHOLOGY AND GENOMIC MEDICINE * Urine culture (07/10/2017 11:00 PM CDT) Urine culture SEE COMMENTComment: [facility] OF Bacteriuria screen negative. PATHOLOGY AND GENOMIC MEDICINE Performing Organization Address [facility] [place] [address] PATHOLOGY AND GENOMIC MEDICINE * Troponin (07/10/2017 2:40 PM CDT) Troponin <0.30 0.00 - 0.30 ng/mL [facility] OF Comment: PATHOLOGY AND 0.30 - 1.49 GENOMIC MEDICINE ng/mlMay indicate increased risk of acute coronary syndrome. >=1.5 ng/ml Consistent with acute myocardial infarction. The diagnostic value of a single normal or non-diagnostic result is questionable.Serial samples at 2-6 hour intervals are required to rule out acute myocardial injury. Specimen Plasma specimen Performing Organization Address [facility] [place] [address] PATHOLOGY AND [facility] * Blood culture, aerobic & anaerobic (07/10/2017 2:00 PM CDT) Only the most recent of 2 results within the time period is included. Blood culture isolate No growth after 5 days of [facility] DE[facility] OF incubation. PATHOLOGY AND Comment: GENOMIC MEDICINE Specimen Information Specimen Source: Blood Specimen Site: Arm, right Specimen Blood - Arm, right Performing Organization Address [facility] Cent[facility] Phone Number [facility] [place] [place] [address] PATHOLOGY AND GENOMIC MEDICINE * Partial thromboplastin time, activated (07/10/2017 6:55 AM CDT) PTT 28.1 23.0 - 36.0 sec [facility] OF Comment: PATHOLOGY AND PTT therapeutic range for [facility] unfractionated heparin is 61.0-112.0 seconds which corresponds to Anti-Xa 0.3-0.7 U/ml. Specimen Blood Performing Organization Address [facility]/[place] [address] PATHOLOGY AND GENOMIC MEDICINE * Type and screen (07/10/2017 6:55 AM CDT) ABO grouping O [facility] DEPARTMENT OF PATHOLOGY AND GENOMIC MEDICINE Rh type POS [facility] DEPARTMENT OF PATHOLOGY AND GENOMIC MEDICINE Antibody screen (gel) NEG [facility] DEPARTMENT OF PATHOLOGY AND GENOMIC MEDICINE Specimen Blood Performing Organization Address [facility]/Zipcode Phone Number [facility] DEPARTMENT OF [address] [place] [address] PATHOLOGY AND GENOMIC MEDICINE * XR Chest 2 Vw (07/10/2017 6:41 AM CDT) Narrative Performed At EXAMINATION:XR CHEST 2 VW RADIANT CLINICAL HISTORY:Cough, Hemoptysis COMPARISON:None. IMPRESSION: 1.The heart size is normal. 2.Moderate emphysematous changes are present bilaterally. There is patchy volume loss and bronchiectasis in the lingula. Increased reticular changes are present in the right mid to upper lung zone. There is no evidence of pulmonary edema. There are no focal consolidations or effusions. 3.Bony structures are osteopenic. 4.Changes related to breast augmentation are noted. Procedure Note Interface, Radiology Results Incoming - 07/10/2017 7:05 AM CDT EXAMINATION: XR CHEST 2 VW CLINICAL HISTORY: Cough, Hemoptysis COMPARISON: None. IMPRESSION: 1. The heart size is normal. 2. Moderate emphysematous changes are present bilaterally. There is patchy volume loss and bronchiectasis in the lingula. Increased reticular changes are present in the right mid to upper lung zone. There is no evidence of pulmonary edema. There are no focal consolidations or effusions. 3. Bony structures are osteopenic. 4. Changes related to breast augmentation are noted. Performing Organization Address [facility]/Zipcode Phone Number [facility] [address] [place] [address] after 07/09/2017 Insurance Payer Benefit Subscriber ID Type Phone Address Plan / Group HUMANA HUMANA xxxxxxxxx HMO HMO/POS/EP O/OPEN ACCESS [facility] xxxxxxxxx HMO/PPO THCARE CHOICE/CHO ICE + Advance Directives Patient has advance care planning documents on file. For more information, rhona fernandez contact: Storm Marquis [address] [place] [address]
== END | disposition home or self-care (01) ==
LOC: OR 07:05
PROVIDERS: ATTEND Internal Medicine Gastroenterology
DX: Z12.11 Encounter for screening for malignant neoplasm of colon (principal); K63.5 Polyp of colon; K57.30 Diverticulosis of large intestine without perforation or abscess without bleeding; K62.1 Rectal polyp; K64.8 Other hemorrhoids; I47.1 Supraventricular tachycardia; I34.1 Nonrheumatic mitral (valve) prolapse; E03.9 Hypothyroidism, unspecified; M32.9 Systemic lupus erythematosus, unspecified; E06.3 Autoimmune thyroiditis; M35.00 Sjogren syndrome, unspecified; Z01.810 Encounter for preprocedural cardiovascular examination; Z79.82 Long term (current) use of aspirin
CPT/HCPCS: 45384; 93005; J2001; J2250; J2704